=== PATIENT | male | born 1985 | race Caucasian/White ===

== ENCOUNTER 2024-01-06 23:59 | Emergency (ER) | payer SELFPAY ==
[2024-01-07 00:17] VITALS: BP 131/72; PULSE 110; RESP 18; TEMP 36.8; O2SAT 96; BMI 51.0
== END 2024-01-07 03:24 | disposition left against medical advice (07) ==
LOC: HO.ED 01-07 03:21
PROVIDERS: Emergency Provider Emergency Medicine
DX: M79.605 Pain in left leg (principal)
CPT/HCPCS: 99281